=== PATIENT | female | born 1970 | race Two or more races ===

== ENCOUNTER 2017-01-05 10:36 | Observation (INO) | payer MEDICAID, OTHER ==
[~2017-01-05] VITALS: Ht 167.6 cm; Wt 86.2 kg
[~2017-01-05 10:36] MED LIST: SERT-275
[2017-01-05 11:40] LABS: Basophils # (auto) 0 uL; Basophils % (auto) 0.7 % (0.0-2.0); Eosinophils # (auto) 0.1 uL; Eosinophils % (auto) 1.7 % (0.0-7.0); Hematocrit 30.4 % (36.0-46.0); Lymphocytes # (auto) 1.8 uL; Lymphocytes % (auto) 25.8 % (10.0-50.0); Mean Corpuscular Hemoglobin 28.5 pg (28.0-32.0); Mean Corpuscular Hgb Conc. 32.9 g/dL (32.0-36.0); Mean Corpuscular Volume 86.6 fL (80.0-100.0); Mean Platelet Volume 6.9 fL (7.4-10.4); Monocytes # (auto) 0.3 uL; Monocytes % (auto) 4.3 % (0.0-12.0); Neutrophils # (auto) 4.6 uL; Neutrophils % (auto) 67.5 % (37.0-80.0); Platelet Count (auto) 476 10^3/uL (140-450); White Blood Cell 6.8 10^3/uL (4.4-10.8)
[2017-01-05 11:59] LABS: Albumin 3.5 g/dL (3.4-5.0); BUN/Creatinine Ratio 18.9; Bilirubin, Total 0.8 mg/dL (0.2-1.0); Calcium 8.6 mg/dL (8.5-10.1); Potassium 3.9 mmol/L (3.5-5.1); Total Protein 7.4 g/dL (6.4-8.2)
[2017-01-05 12:27] LABS: Urine Bilirubin Negative (Negative); Urine Blood TRACE /uL (Negative); Urine Color Yellow (Yellow); Urine Glucose Normal (Normal); Urine Ketone Negative (Negative); Urine Mucus FEW (None Seen); Urine Nitrite Negative (Negative); Urine RBC 1 /hpf (0 - 4); Urine Squamous Epithelial Cell FEW /hpf (<5); Urine Urobilinogen Normal (Negative); Urine pH 5.5 (5.0-8.0)
[2017-01-05] MEDS ORDERED: SODIUM CHLORIDE 0.9% 1,000 ML IVB ONE (16:03)
[2017-01-05] MEDS ORDERED: KETOROLAC TROMETH 30 MG/ML 1ML VIAL IV ONE (16:15)
[2017-01-05 19:15] VITALS: BP 107/82
== END 2017-01-05 20:04 | disposition home or self-care (01) | DRG 244 ==
LOC: ER 11:20 → OVERFLOW 16:07 → ER 20:04
PROVIDERS: ADMIT Family Medicine; ATTEND Family Medicine
DX: K57.30 Diverticulosis of large intestine without perforation or abscess without bleeding (principal); D50.9 Iron deficiency anemia, unspecified
CPT/HCPCS: 36415; 71010; 74176; 80053; 81001; 81025; 82150; 83690; 83735; 85025; 96361; 96374; 99285; G0378; J1885; J7030

== ENCOUNTER 2018-09-24 19:38 | Inpatient (IN) | payer BC, MEDICAID ==
[~2018-09-24] VITALS: Ht 167.6 cm; Wt 91.1 kg
[2018-09-24 20:25] LABS: Basophils # (auto) 0.1 uL; Basophils % (auto) 0.7 % (0.0-2.0); Eosinophils # (auto) 0.1 uL; Eosinophils % (auto) 1.1 % (0.0-7.0); Hematocrit 33.7 % (36.0-46.0); Hemoglobin 10.8 g/dL (12.2-16.2); Lymphocytes # (auto) 1.4 uL; Lymphocytes % (auto) 18.1 % (10.0-50.0); Mean Corpuscular Hemoglobin 29.3 pg (28.0-32.0); Mean Corpuscular Hgb Conc. 31.9 g/dL (32.0-36.0); Mean Corpuscular Volume 91.8 fL (80.0-100.0); Monocytes # (auto) 0.7 uL; Monocytes % (auto) 8.8 % (0.0-12.0); Neutrophils # (auto) 5.6 uL; Neutrophils % (auto) 71.3 % (37.0-80.0); Nucleated Red Blood Cells % 0.1 %; Platelet Count (auto) 376 10^3/uL (140-450); Red Blood Cells 3.68 10^6/uL (4.0-5.20); Red Cell Distribution Width 15.7 % (11.8-14.3); White Blood Cell 7.9 10^3/uL (4.4-10.8)
[2018-09-24 20:34] LABS: INR 1.09 (0.9-1.15); Partial Thromboplastin Time 30.3 sec (23.78-33.04); Prothrombin Time 11.6 sec (9.27-12.13)
[2018-09-24 20:37] LABS: Albumin 2.9 g/dL (3.4-5.0); Anion Gap 9 (5-15); Blood Urea Nitrogen 10 mg/dL (7-18); Calcium 8.7 mg/dL (8.5-10.1); Carbon Dioxide 24 mmol/L (21-32); Chloride 101 mmol/L (98-107); Glucose 103 mg/dL (74-106); Magnesium 2.6 mg/dL (1.6-2.6); Potassium 4.2 mmol/L (3.5-5.1); Sodium 134 mmol/L (136-145)
[2018-09-24 20:45] LABS: Alanine Aminotransferase 48 U/L (13-56); Alkaline Phosphatase 797 U/L (45-117); Aspartate Aminotransferase 167 U/L (15-37); BUN/Creatinine Ratio 14.9; Bilirubin, Total 1.7 mg/dL (0.2-1.0); GFR African American > 60 mL/min; GFR Non-African American > 60 mL/min; Total Protein 8.1 g/dL (6.4-8.2)
[2018-09-24] MEDS ORDERED: SODIUM CHLORIDE 0.9% 1,000 ML IV ONE (21:15)
[2018-09-24] MEDS ORDERED: PANTOPRAZOLE 40 MG/10 ML VIAL IV ONE (21:15)
[2018-09-24] MEDS ORDERED: PROMETHAZINE HCL 25 MG/ML 1ML IV ONE (21:15)
[2018-09-24] MEDS ORDERED: TEMAZEPAM 15 MG CAP PO PRN (21:45)
[2018-09-24] MEDS ORDERED: ONDANSETRON HCL 4 MG/2 ML VIAL IV PRN (21:45)
[2018-09-24] MEDS: SODIUM CHLORIDE 0.9% 1,000 ML IV SCH (21:45)
[2018-09-24] MEDS ORDERED: NITROGLYCERIN 0.4 MG SL TAB SL PRN (21:45)
[2018-09-24] MEDS ORDERED: MORPHINE SULFATE 10 MG/ML INJ 1ML SDV IV PRN ×2 (21:45)
[2018-09-24] MEDS ORDERED: ACETAMINOPHEN 325 MG TAB PO PRN (21:45)
[2018-09-24] MEDS ORDERED: PROMETHAZINE HCL 25 MG/ML 1ML IV PRN (22:00)
[2018-09-24] MEDS: FAMOTIDINE 20 MG TAB PO SCH (23:15)
[2018-09-25] VITALS (7 sets, daily range): BP systolic 100–113; BP diastolic 18–69
--- NOTE | 2018-09-25 00:02 | NUR ---
Telemetry admit from ER JF VANN admitted to Telemetry. Patient oriented to BARI CALLOWAY, primary RN, room 290B and unit policies regarding patient care and visiting hours. Patient now on continuous telemetry monitoring, tele box #5. Weighed by bed scale and encouraged to call if they need something. Pt currently laying in bed with rails up x2, bed is locked in the lowest position and call light is within reach. All questions and concerns addressed, patient verbalized understanding.
[2018-09-25] MEDS: HYDROcodone-ACET 5/325MG TAB PO PRN ×2 (00:49→11:27)
[2018-09-25] MEDS ORDERED: HYDR-4683 PO (01:17)
[2018-09-25] MEDS: SODIUM CHLORIDE 0.9% 1,000 ML IV SCH ×4 (05:00→23:28)
[2018-09-25 06:13] LABS: Basophils # (auto) 0.1 uL; Basophils % (auto) 0.7 % (0.0-2.0); Eosinophils # (auto) 0.2 uL; Eosinophils % (auto) 2.1 % (0.0-7.0); Hemoglobin 10.3 g/dL (12.2-16.2); Lymphocytes # (auto) 2.1 uL; Lymphocytes % (auto) 26.6 % (10.0-50.0); Mean Corpuscular Hemoglobin 30.2 pg (28.0-32.0); Mean Corpuscular Hgb Conc. 32.1 g/dL (32.0-36.0); Mean Corpuscular Volume 94.3 fL (80.0-100.0); Monocytes # (auto) 0.7 uL; Monocytes % (auto) 8.6 % (0.0-12.0); Neutrophils # (auto) 4.9 uL; Nucleated Red Blood Cells % 0.1 %; Platelet Count (auto) 375 10^3/uL (140-450); Red Cell Distribution Width 16.1 % (11.8-14.3); White Blood Cell 7.9 10^3/uL (4.4-10.8)
[2018-09-25 06:39] LABS: Calcium 8.3 mg/dL (8.5-10.1); Chloride 105 mmol/L (98-107); Potassium 3.3 mmol/L (3.5-5.1); Sodium 138 mmol/L (136-145)
[2018-09-25 06:44] LABS: Alanine Aminotransferase 42 U/L (13-56); Albumin 2.6 g/dL (3.4-5.0); Alkaline Phosphatase 679 U/L (45-117); Anion Gap 7 (5-15); Aspartate Aminotransferase 154 U/L (15-37); BUN/Creatinine Ratio 14.3; Bilirubin, Total 1.8 mg/dL (0.2-1.0); Blood Urea Nitrogen 9 mg/dL (7-18); Carbon Dioxide 26 mmol/L (21-32); GFR African American > 60 mL/min; GFR Non-African American > 60 mL/min; Glucose 91 mg/dL (74-106); Total Protein 7.6 g/dL (6.4-8.2)
--- NOTE | 2018-09-25 07:30 | NUR ---
Morning note patient resting in bed with eyes closed. Respirations even and unlabored on RA. Fall precautions in place with call light within reach. Will continue to monitor q1hr & PRN.
[2018-09-25] MEDS: FAMOTIDINE 20 MG TAB PO SCH ×2 (09:06→21:32)
--- NOTE | 2018-09-25 14:01 | NUR ---
Family at bedside
--- NOTE | 2018-09-25 16:08 | NUR ---
Patient transferred to room 292B with all personal belongings. Family at bedside.
--- NOTE | 2018-09-25 17:34 | NUR ---
RE: low potassium Contacted Dr. Chavez to notify MD of patient's abnormal potassium lab value. Will wait for orders.
--- NOTE | 2018-09-25 18:58 | NUR ---
Order received for potassium telephone order receive for low potassium level.
--- NOTE | 2018-09-25 18:58 | NUR ---
End of shift patient resting in bed with even and unlabored respirations on RA. Family at bedside. Fall precautions in place with call light within reach. Will endorse care to RN.
[2018-09-25] MEDS ORDERED: POTASSIUM CHL 20 Meq TABLET PO ONE (19:00)
--- NOTE | 2018-09-25 20:00 | NUR ---
Opening Shift Note Assumed care of patient, awake and alert, oriented x4. No S/S of distress/SOB or pain. Instructed on POC, verbalized understanding and to call for assist PRN, call light within reach. Side rails up x2, bed in lowest locked position. Family at bedside. Will continue to monitor for changes Q1hr and PRN.
--- NOTE | 2018-09-25 22:25 | NUR ---
DR LEROY AT BEDSIDE DISCUSSING POC. PT VERBALIZED UNDERSTANDING.
[2018-09-26 04:07] LABS: Urine Amorphous Crystal FEW /hpf (None Seen); Urine Bacteria MANY /hpf (None Seen); Urine Blood 2+ /uL (Negative); Urine Mucus FEW (None Seen); Urine Specific Gravity 1.013 (1.001-1.035); Urine WBC 15 /hpf (0 - 5)
[2018-09-26 05:00] VITALS: BP 112/62
[2018-09-26] MEDS: SODIUM CHLORIDE 0.9% 1,000 ML IV SCH ×3 (05:42→21:56)
[2018-09-26 05:48] LABS: Calcium 7.7 mg/dL (8.5-10.1); Chloride 107 mmol/L (98-107); Potassium 4.1 mmol/L (3.5-5.1); Sodium 137 mmol/L (136-145)
[2018-09-26 05:53] LABS: Alanine Aminotransferase 35 U/L (13-56); Albumin 2.2 g/dL (3.4-5.0); Alkaline Phosphatase 609 U/L (45-117); Anion Gap 5 (5-15); Aspartate Aminotransferase 145 U/L (15-37); BUN/Creatinine Ratio 9.3; Bilirubin, Total 1.8 mg/dL (0.2-1.0); Blood Urea Nitrogen 5 mg/dL (7-18); Carbon Dioxide 25 mmol/L (21-32); Glucose 94 mg/dL (74-106); Total Protein 6.4 g/dL (6.4-8.2)
[2018-09-26 06:12] LABS: GFR African American > 60 mL/min; GFR Non-African American > 60 mL/min
--- NOTE | 2018-09-26 07:30 | NUR ---
Morning note patient resting in bed with even and unlabored respirations on RA. Instructed patient on POC, fall precautions and to call for assistance as needed. Patient verbalized understanding. Fall precautions in place with call light within reach. Will continue to monitor q1hr & PRN.
--- NOTE | 2018-09-26 07:30 | NUR ---
RE: Urine analysis Contacted Dr. Chavez to notify MD of the UA results. Waiting for orders.
[2018-09-26] MEDS: FAMOTIDINE 20 MG TAB PO SCH ×2 (08:22→21:56)
[2018-09-26] MEDS: HYDROcodone-ACET 5/325MG TAB PO PRN (08:22)
--- NOTE | 2018-09-26 08:27 | NUR ---
RE: breakfast meal Patient currently consuming breakfast meal at this time. Instructed patient to notify staff if N/V and/or diarrhea occur after consuming the meal. Patient verbalized understanding. call light within reach.
--- NOTE | 2018-09-26 09:21 | NUR ---
PCP No PCP, Has Insu. Spoke with Meaghan Jeffers regarding arranging new PCP for patient, per Meaghan she is to come speak with patient.
--- NOTE | 2018-09-26 09:34 | NUR ---
Orders received Antibiotic order received by telephone from Dr. Chavez. Order read back to confirm. RN to place order per MD's request.
[2018-09-26] MEDS ORDERED: cefTRIAXone 1GM/50ML D5W 50 ML IV ONE (09:45)
[2018-09-26 10:12] VITALS: BP 106/64
--- NOTE | 2018-09-26 11:41 | NUR ---
Family at bedside - patient requesting shower will request order from MD during patient rounds.
--- NOTE | 2018-09-26 11:42 | NUR ---
Patient reports episode of vomiting Patient states "I don't think it is related to any food. I just felt hot and like I needed to throw up." Will update MD during patient rounds.
[2018-09-26 13:00] VITALS: BP 103/62
--- NOTE | 2018-09-26 14:13 | NUR ---
RE: showering received telephone order that it is okay for patient to shower. Patient has been updated and instructed to notify staff once she is ready to take a shower. Patient verbalized understanding. Family at bedside.
[2018-09-26 17:22] VITALS: BP 102/52
--- NOTE | 2018-09-26 18:48 | NUR ---
End of shift patient resting in bed with even and unlabored respirations on RA. Family at bedside. Patient has c/o abdominal distention and discomfort. Patient denies N/V at this time. MD has not rounded on patient at this time. Will endorse information to ESTELA De La Fuente. Fall precautions in place with call light within reach. Will endorse further care to ESTELA De La Fuente.
--- NOTE | 2018-09-26 19:05 | NUR ---
Opening Shift Note Assumed care of patient, awake and alert. Family is at bedside. No S/S of distress/SOB or pain. Instructed on POC and to call for assist PRN, will continue to monitor for changes Q1hr and PRN.
--- NOTE | 2018-09-26 19:38 | NUR ---
ROUNDS SPOKE TO PT REGARDING POC. PT STATED THAT SHE FELT WARM AND VOMITTED AFTER RECEIVING ROCEPHIN, ABD ALSO FEELS DISTENDED AND TASTE BUDS ARE DIFFERENT. DOES NOT FEEL COMFORTABLE GOING HOME YET. LEFT MSG FOR DR LEROY. WILL ENDORSE TO CRISTA PALMER.
[2018-09-26 22:00] VITALS: BP 102/72
[2018-09-27] MEDS: SODIUM CHLORIDE 0.9% 1,000 ML IV SCH ×2 (03:40→09:45)
[2018-09-27 05:01] VITALS: BP 108/70
--- NOTE | 2018-09-27 07:00 | NUR ---
Closing shift note Patient resting comfortably in bed. No S/S of distress, pain, or SOB. Will endorse care to day shift RN.
[2018-09-27 08:00] VITALS: BP 104/68
--- NOTE | 2018-09-27 08:12 | NUR ---
Opening Shift Note Assumed care of patient, awake and alert, oriented x 4 and verbally responsive. No S/S of distress/SOB or pain. Instructed on POC and to call for assist PRN, will continue to monitor for changes Q1hr and PRN.
[2018-09-27 08:48] VITALS: BP 104/68
[2018-09-27] MEDS ORDERED: cefTRIAXone 1GM/50ML D5W 50 ML IV SCH (09:00)
[2018-09-27] MEDS: FAMOTIDINE 20 MG TAB PO SCH (09:18)
[2018-09-27 09:49] VITALS: BP 104/93
--- NOTE | 2018-09-27 11:23 | NUR ---
Discharge instructions given as ordered. Encourage to follow up with PMD (Patient has no PCP. Instructed patient to go to [facility] Urgent care 8 AM-8 PM. # [phone] Ext [phone] Address : [address] [place] [address] Rd, [place], [address]. Provided a urgent care coupon to the patient.)as instructed. All questions and concerns addressed. Patient verbalized understanding. Medication reconciliation form completed and copy given to patient. IV removed with catheter intact, pressure dressing applied. Telemetry unit returned to [facility]. Patient taken to vehicle via wheelchair with all personal belongings, accompanied by staff and family member. No distress noted at time of departure.
== END 2018-09-27 12:56 | disposition home or self-care (01) | DRG 392 ==
LOC: ER 19:38 → TELE 21:45 → TELE-WESTW 23:20
PROVIDERS: ADMIT Internal Medicine; ATTEND Internal Medicine
DX: R11.2 Nausea with vomiting, unspecified (principal); C78.7 Secondary malignant neoplasm of liver and intrahepatic bile duct; J98.11 Atelectasis; K42.9 Umbilical hernia without obstruction or gangrene; D64.9 Anemia, unspecified; E86.0 Dehydration; Z63.4 Disappearance and death of family member; Z80.0 Family history of malignant neoplasm of digestive organs; Z90.49 Acquired absence of other specified parts of digestive tract; Z88.0 Allergy status to penicillin; Z85.038 Personal history of other malignant neoplasm of large intestine
CPT/HCPCS: 36415; 74176; 80053; 81001; 83735; 84484; 84702; 85025; 85610; 85730; 87086; 93005; 96361; 96374; 96375; C9113; G0378; J0696

== ENCOUNTER 2018-10-28 14:29 | Inpatient (IN) | payer BC ==
[~2018-10-28] VITALS: Ht 167.6 cm; Wt 101.6 kg
[~2018-10-28 14:29] MED LIST changes: +HYDR-4683 PO; -SERT-275
[2018-10-28 17:03] LABS: Basophils # (auto) 0 uL; Basophils % (auto) 0.3 % (0.0-2.0); Eosinophils # (auto) 0 uL; Eosinophils % (auto) 0.4 % (0.0-7.0); Hematocrit 28.2 % (36.0-46.0); Hemoglobin 9.1 g/dL (12.2-16.2); Lymphocytes # (auto) 0.9 uL; Lymphocytes % (auto) 9.9 % (10.0-50.0); Mean Corpuscular Hgb Conc. 32.3 g/dL (32.0-36.0); Mean Corpuscular Volume 89.6 fL (80.0-100.0); Monocytes # (auto) 0.8 uL; Monocytes % (auto) 8.5 % (0.0-12.0); Neutrophils # (auto) 7.5 uL; Neutrophils % (auto) 80.9 % (37.0-80.0); Platelet Count (auto) 318 10^3/uL (140-450); Red Blood Cells 3.15 10^6/uL (4.0-5.20); Red Cell Distribution Width 18.1 % (11.8-14.3); White Blood Cell 9.3 10^3/uL (4.4-10.8)
[2018-10-28 17:10] LABS: Urine Bacteria FEW /hpf (None Seen); Urine Blood Negative /uL (Negative); Urine Mucus FEW (None Seen); Urine Specific Gravity 1.019 (1.001-1.035); Urine WBC 30 /hpf (0 - 5)
[2018-10-28 17:18] LABS: INR 1.23 (0.9-1.15); Partial Thromboplastin Time 29.6 sec (23.78-33.04)
[2018-10-28 17:37] LABS: Albumin 1.9 g/dL (3.4-5.0); Anion Gap 10 (5-15); Blood Urea Nitrogen 4 mg/dL (7-18); Carbon Dioxide 25 mmol/L (21-32); Chloride 95 mmol/L (98-107); Potassium 4.2 mmol/L (3.5-5.1); Sodium 130 mmol/L (136-145)
[2018-10-28 17:39] LABS: Alanine Aminotransferase 29 U/L (13-56); Aspartate Aminotransferase 259 U/L (15-37); GFR African American 169 mL/min; GFR Non-African American 140 mL/min; Glucose 93 mg/dL (74-106)
[2018-10-28 17:42] LABS: Alkaline Phosphatase 759 U/L (45-117); Bilirubin, Total 3.4 mg/dL (0.2-1.0); Total Protein 6.6 g/dL (6.4-8.2)
[2018-10-28] MEDS ORDERED: MORPHINE SULFATE 4 MG/ML SYR/VIAL IV ONE (17:45)
[2018-10-28] MEDS ORDERED: ACETAMINOPHEN 325 MG TAB PO ONE (20:30)
[2018-10-28] MEDS ORDERED: ONDANSETRON HCL 4 MG/2 ML VIAL IV PRN (21:45)
[2018-10-28] MEDS ORDERED: SODIUM CHLORIDE 0.9% 1,000 ML IV ONE (21:45)
[2018-10-28] MEDS ORDERED: IBUPROFEN 400 MG TAB PO PRN (21:45)
[2018-10-28] MEDS ORDERED: SODIUM CHLORIDE 0.9% 2,500 ML IV ONE (21:45)
[2018-10-28] MEDS ORDERED: PROMETHAZINE HCL 25 MG/ML 1ML IV ONE (21:45)
[2018-10-28] MEDS ORDERED: TEMAZEPAM 15 MG CAP PO PRN (21:45)
[2018-10-28] MEDS: DOCUSATE SOD 100 MG CAP PO SCH (23:22)
[2018-10-28] MEDS: FAMOTIDINE 20 MG TAB PO SCH (23:22)
[2018-10-28 23:40] VITALS: BP 114/73
--- NOTE | 2018-10-28 23:40 | NUR ---
MS admit from ER EDWARJF admitted to tele/MS after SBAR received. Patient oriented to Cecelia Stevens, primary RN, unit, room, bed, and unit policies regarding patient care and visiting hours. Patient weighed by bed scale and encouraged to call if they need something. All questions and concerns addressed, patient verbalized understanding. Note: Patient is awake and alert x4, ambulated independently to bathroom. Patient updated on plan of care, all questions and concerns addressed. Patient instructed on need for urine specimen for culture, verbalized understanding. Specimen cup provided to patient.
[2018-10-28 23:53] VITALS: BP 114/73
[2018-10-29] MEDS: MORPHINE SULFATE 4 MG/ML SYR/VIAL IV PRN ×6 (00:05→23:35)
[2018-10-29] MEDS ORDERED: HYDR-4072 PO (04:52)
[2018-10-29] MEDS ORDERED: ONDA-143 PO (04:52)
[2018-10-29 05:00] VITALS: BP 104/74
--- NOTE | 2018-10-29 06:20 | NUR ---
URINE SPECIMEN SENT TO LAB FOR URINE CULTURE. DARK MIKI URINE NOTED.
--- NOTE | 2018-10-29 07:25 | NUR ---
Opening Shift Note Assumed care of patient, awake and alert. No S/S of distress/SOB pain managed with morphine; abdomen distended and tender to palpation. at bedside .Instructed on POC and to call for assist PRN, will continue to monitor for changes Q1hr and PRN.
[2018-10-29] MEDS ORDERED: IOHEXOL 300 MG/ML 100ML BOTTLE IJ ONE (08:09)
[2018-10-29 08:30] LABS: Basophils # (auto) 0 uL; Basophils % (auto) 0.5 % (0.0-2.0); Eosinophils # (auto) 0 uL; Eosinophils % (auto) 0.1 % (0.0-7.0); Hematocrit 26.3 % (36.0-46.0); Hemoglobin 8.7 g/dL (12.2-16.2); Lymphocytes # (auto) 1.1 uL; Lymphocytes % (auto) 11.5 % (10.0-50.0); Mean Corpuscular Hemoglobin 29.5 pg (28.0-32.0); Mean Corpuscular Hgb Conc. 33.1 g/dL (32.0-36.0); Mean Corpuscular Volume 89.3 fL (80.0-100.0); Monocytes # (auto) 0.7 uL; Monocytes % (auto) 7.1 % (0.0-12.0); Neutrophils # (auto) 7.4 uL; Neutrophils % (auto) 80.8 % (37.0-80.0); Platelet Count (auto) 283 10^3/uL (140-450); Red Blood Cells 2.95 10^6/uL (4.0-5.20); Red Cell Distribution Width 18.1 % (11.8-14.3); White Blood Cell 9.2 10^3/uL (4.4-10.8)
[2018-10-29 08:32] LABS: BUN/Creatinine Ratio 11.8; Calcium 8.3 mg/dL (8.5-10.1); Potassium 3.9 mmol/L (3.5-5.1)
[2018-10-29 09:00] VITALS: BP 119/74
[2018-10-29] MEDS: FAMOTIDINE 20 MG TAB PO SCH ×2 (10:18→21:52)
[2018-10-29] MEDS: DOCUSATE SOD 100 MG CAP PO SCH ×2 (10:18→21:52)
--- NOTE | 2018-10-29 12:36 | NUR ---
NUTRITION CONSULT/ASSESSMENT NOTES Please refer to link notes of nutrition screen form filed under the intervention section of the plan of care for further details. Est. Needs: 1750 kcal to 2100 kcal (20-25 kcal/kgBW), 101 gms to 126 gms pro (1.2-1.5 gms/kgBW d/t CA, severe hypoalbuminemia). Will continue to monitor pertinent labs and reassess nutrient need prn Thank you for this consult. Addendum: 10/29/18 at [address] Amended: Links added.
[2018-10-29 13:00] VITALS: BP 112/71
[2018-10-29] MEDS: SODIUM CHLORIDE 0.9% 1,000 ML IV SCH ×2 (14:03→20:36)
[2018-10-29 18:05] VITALS: BP 116/65
[2018-10-29] MEDS: Ensure Enlive Strawberry 8oz Bottle PO SCH ×3 (19:59→21:52)
[2018-10-29 22:00] VITALS: BP 114/69
[2018-10-30 05:00] VITALS: BP 111/65
[2018-10-30] MEDS: SODIUM CHLORIDE 0.9% 1,000 ML IV SCH ×3 (05:46→21:52)
[2018-10-30] MEDS: Ensure Enlive Strawberry 8oz Bottle PO SCH ×4 (05:47→21:53)
[2018-10-30] MEDS: MORPHINE SULFATE 4 MG/ML SYR/VIAL IV PRN ×2 (05:47→09:42)
[2018-10-30 06:37] LABS: Basophils # (auto) 0 uL; Basophils % (auto) 0.2 % (0.0-2.0); Eosinophils # (auto) 0 uL; Eosinophils % (auto) 0.3 % (0.0-7.0); Hematocrit 26.2 % (36.0-46.0); Hemoglobin 8.6 g/dL (12.2-16.2); Mean Corpuscular Hemoglobin 29.4 pg (28.0-32.0); Mean Corpuscular Hgb Conc. 32.7 g/dL (32.0-36.0); Monocytes # (auto) 0.8 uL; Monocytes % (auto) 8.4 % (0.0-12.0); Neutrophils # (auto) 7.5 uL; Neutrophils % (auto) 80.1 % (37.0-80.0); Platelet Count (auto) 296 10^3/uL (140-450); Red Blood Cells 2.91 10^6/uL (4.0-5.20); Red Cell Distribution Width 18.7 % (11.8-14.3); White Blood Cell 9.4 10^3/uL (4.4-10.8)
[2018-10-30 06:57] LABS: % Iron Saturation 17.9 % (15-50)
[2018-10-30 06:58] LABS: Calcium 8.1 mg/dL (8.5-10.1); Potassium 3.9 mmol/L (3.5-5.1)
[2018-10-30 07:09] LABS: BUN/Creatinine Ratio 7.9
[2018-10-30 08:44] LABS: Ferritin > 1650.0 ng/mL (10-322); Folate (Folic Acid) 7.82 ng/mL (5.38-24)
[2018-10-30 09:00] VITALS: BP 115/69
[2018-10-30] MEDS: DOCUSATE SOD 100 MG CAP PO SCH ×2 (09:37→21:50)
[2018-10-30] MEDS: FAMOTIDINE 20 MG TAB PO SCH ×2 (09:37→21:50)
[2018-10-30] MEDS ORDERED: LEVOFLOXACIN 500 MG TAB PO ONE (13:00)
[2018-10-30] MEDS: HYDROmorphone HCL 2 MG/ML VL IV PRN ×3 (14:37→23:15)
[2018-10-30 17:27] VITALS: BP 102/59
--- NOTE | 2018-10-30 19:20 | NUR ---
Opening Shift Note Received report from jennifer Edwards RN. Assumed care of patient, awake and alert. No S/S of distress/SOB, but c/o discomfort to abdomen. Family at bedside. Instructed on POC and to call for assist PRN, will continue to monitor for changes Q1hr and PRN.
--- NOTE | 2018-10-30 21:30 | NUR ---
DR LEROY IN PATIENT'S ROOM.
[2018-10-30 22:00] VITALS: BP 112/66
[2018-10-31] MEDS: SODIUM CHLORIDE 0.9% 1,000 ML IV SCH ×3 (03:50→22:37)
[2018-10-31 05:00] VITALS: BP 105/67
[2018-10-31] MEDS: HYDROmorphone HCL 2 MG/ML VL IV PRN ×2 (05:13→09:28)
[2018-10-31] MEDS: Ensure Enlive Strawberry 8oz Bottle PO SCH ×4 (05:16→21:33)
--- NOTE | 2018-10-31 07:00 | NUR ---
PATIENT IS ALERT AND ORIENTED, AMBULATORY, RESTING IN BED, NO DISTRESS NOTED AND PATIENT JUST RECEIVED DILAUDID FOR PAIN TO ABDOMEN.
[2018-10-31 09:00] VITALS: BP 104/68
[2018-10-31] MEDS: LEVOFLOXACIN 500 MG TAB PO SCH (09:35)
[2018-10-31] MEDS: FAMOTIDINE 20 MG TAB PO SCH ×2 (09:35→21:31)
[2018-10-31] MEDS: DOCUSATE SOD 100 MG CAP PO SCH ×2 (09:35→21:31)
--- NOTE | 2018-10-31 11:47 | NUR ---
Nutrition Follow-up Notes Wt.: 89.9 kg Pt was sleeping with no family by beside. per records pt with abdominal pain, no distress noted per nursing. pt is now advanced to full liq diet with ensure Enlive 1 carton QID with adequate Po of 75% x6 per RN doc Est. Needs: 1750 kcal to 2100 kcal (20-25 kcal/kgBW), 101 gms to 126 gms pro (1.2-1.5 gms/kgBW d/t CA, severe hypoalbuminemia). Will continue to monitor pertinent labs and reassess nutrient need prn Labs: CA 8.1 L, ALB 1.9 L. Skin: Omar scale 18, mod risk, skin intact per detail drafter. GI: Pt has no BM reported per detail drafter. PES: Altered nutrition related lab values r/t current/chronic medical condition aeb hyponatremia, low renal labs, elev. LFTs, hyperbilirubinemia, hypocalcemia and severe hypoalbuminemia Increased nutrient needs r/t chronic current medical condition aeb Abdominal pain- Stage IV Colon CA with metastasis,Right pleural effusion,severe hypoalbuminemia, on Clear Liquid diet Will continue to monitor PO intake, skin status, pertinent labs and weight trend. F/u in 3-5 days. Rec.: 1.) Advance gradually oral diet (Soft Low Chol, Low Fat diet) when medically appropriate. 2) Continue close supervision with meals 3.) Refer to RD for further nutrition educ. and weight monitoring upon discharge. 4.) Continue current plan of care.
[2018-10-31 13:00] VITALS: BP 100/62
[2018-10-31] MEDS: HYDROmorphone HCL 2 MG TAB PO PRN ×2 (15:16→19:59)
[2018-10-31 17:04] VITALS: BP 104/64
--- NOTE | 2018-10-31 19:10 | NUR ---
Opening Shift Note Assumed care of patient, awake and alert. No S/S of distress/SOB or pain. Instructed on POC and to call for assist PRN, will continue to monitor for changes Q1hr and PRN. Bed changed in lowest position, and call light within reach.
[2018-10-31] MEDS: MORPHINE SULF 30 mg ER tab PO SCH (21:31)
[2018-10-31 21:47] VITALS: BP 116/70
--- NOTE | 2018-11-01 00:01 | NUR ---
IV removal IV to right forearm infiltrated. IV DC'd with sterile technique, catheter fully intact. Pressure dressing applied to site. Patient tolerated procedure well. IV insertion IV access obtained, via clean sterile technique by inserting 22 gauge catheter at right hand after first attempt. IV secured properly. No trauma to site. Patient tolerated procedure well.
[2018-11-01 05:00] VITALS: BP_SYST 110; BP_SYST 133; BP_DIAS 69; BP_DIAS 72
[2018-11-01] MEDS: HYDROmorphone HCL 2 MG TAB PO PRN ×5 (05:40→23:10)
[2018-11-01] MEDS: Ensure Enlive Strawberry 8oz Bottle PO SCH ×4 (05:41→22:00)
[2018-11-01] MEDS: SODIUM CHLORIDE 0.9% 1,000 ML IV SCH ×3 (06:43→23:08)
[2018-11-01 08:45] VITALS: BP 106/67
--- NOTE | 2018-11-01 09:00 | NUR ---
Opening Shift Note Assumed care of patient, awake and alert. Pt states that she abd pain is a tolerable level at this time. Pt requesting that pain medication, including prn Dilaudid be given scheduled so that degree of pain continues to be maintained at tolerable level. Pt instructed on POC and to call for assist PRN, will continue to monitor for changes Q1hr and PRN.
[2018-11-01] MEDS: LEVOFLOXACIN 500 MG TAB PO SCH (09:52)
[2018-11-01] MEDS: DOCUSATE SOD 100 MG CAP PO SCH ×2 (09:52→23:08)
[2018-11-01] MEDS: FAMOTIDINE 20 MG TAB PO SCH ×2 (09:52→23:09)
[2018-11-01] MEDS: MORPHINE SULF 30 mg ER tab PO SCH ×2 (09:52→23:09)
[2018-11-01 13:00] VITALS: BP 96/61
[2018-11-01 17:00] VITALS: BP 108/67
--- NOTE | 2018-11-01 19:05 | NUR ---
OPEN SHIFT NOTE PATIENT IS ALERT AND ORIENTED X4, ON ROOM AIR. 20 GAUGE IN THE RIGHT FOREARM IS INTACT AND PATENT. POC DISCUSSED, QUESTIONS ANSWERED. BED IS LOCKED IN LOWEST POSITION WITH SIDE RAILS UP X2, CALL LIGHT IS WITHIN REACH. FAMILY AT BEDSIDE AT THIS TIME. WILL CONTINUE TO ROUND Q1HR AND PRN.
[2018-11-01 20:14] VITALS: BP 110/66
[2018-11-01 21:42] VITALS: BP 109/64
[2018-11-02] MEDS: HYDROmorphone HCL 2 MG TAB PO PRN ×5 (03:28→20:09)
[2018-11-02 04:54] VITALS: BP 121/73
[2018-11-02] MEDS: Ensure Enlive Strawberry 8oz Bottle PO SCH ×4 (06:00→22:00)
[2018-11-02] MEDS: SODIUM CHLORIDE 0.9% 1,000 ML IV SCH ×3 (07:08→19:45)
--- NOTE | 2018-11-02 09:00 | NUR ---
Opening Shift Note Assumed care of patient, awake and alert. Marked, bilateral, lower leg edema, with pitting in ankles. Both legs are warm to touch with positive pedal pulses. Pt c/o "tightness" in both legs. Pt denies pain in legs. No c/o numbness or tingling in legs. Insructed on POC and to call for assist PRN, will continue to monitor for changes Q1hr and PRN. Pt denies chest pain. Resp even, unlabored.
[2018-11-02] MEDS: DOCUSATE SOD 100 MG CAP PO SCH ×2 (10:19→22:23)
[2018-11-02] MEDS: MORPHINE SULF 30 mg ER tab PO SCH ×2 (10:20→22:23)
[2018-11-02] MEDS: LEVOFLOXACIN 500 MG TAB PO SCH (10:20)
[2018-11-02] MEDS: FAMOTIDINE 20 MG TAB PO SCH ×2 (10:20→22:23)
--- NOTE | 2018-11-02 18:00 | NUR ---
Pt showing no change from initial assessment. No change in degree of edema to both legs. Pt continues to c/o "tightness" in legs, but no actual pain. Pt states that pain is adequately controlled with scheduled administration of Morphine and Dilaudid. No further c/o nausea following the administration of Zofran.
--- NOTE | 2018-11-02 19:02 | NUR ---
OPEN SHIFT NOTE PATIENT IS ALERT AND ORIENTED X4, ON ROOM AIR, 22 GAUGE IN THE RIGHT FOREARM IS INTACT AND PATENT. FAMILY AT BEDSIDE. POC DISCUSSED AND QUESTIONS ANSWERED. BED IS LOCKED IN LOWEST POSITION WITH SIDE RAILS UP X2. CALL LIGHT IS WITHIN REACH AND PATIENT ENCOURAGED TO CALL. WILL CONTINUE TO ROUND Q1HR AND PRN.
[2018-11-02 20:00] VITALS: BP 117/67
[2018-11-02 21:48] VITALS: BP 117/67
[2018-11-03] MEDS: HYDROmorphone HCL 2 MG TAB PO PRN ×5 (00:16→19:48)
[2018-11-03] MEDS: SODIUM CHLORIDE 0.9% 1,000 ML IV SCH ×3 (03:43→19:48)
[2018-11-03 05:00] VITALS: BP_SYST 110; BP_SYST 128; BP_DIAS 65; BP_DIAS 69
[2018-11-03] MEDS: Ensure Enlive Strawberry 8oz Bottle PO SCH ×4 (06:00→22:54)
--- NOTE | 2018-11-03 07:25 | NUR ---
Open Shift Note Received report on patient, awake and sitting up in bed. Patient states pain 5/10. Discussed POC and pain management techniques with patient. Bed in lowest locked position, side rails up x2, and call light within reach. Will continue to monitor.
[2018-11-03 08:00] VITALS: BP 100/60
[2018-11-03] MEDS: LEVOFLOXACIN 500 MG TAB PO SCH (10:25)
[2018-11-03] MEDS: MORPHINE SULF 30 mg ER tab PO SCH ×2 (10:25→22:54)
[2018-11-03] MEDS: FAMOTIDINE 20 MG TAB PO SCH ×2 (10:26→22:54)
[2018-11-03] MEDS: DOCUSATE SOD 100 MG CAP PO SCH ×2 (10:26→22:53)
--- NOTE | 2018-11-03 10:30 | NUR ---
Patient Showering Patient showering, no signs of distress. Will continue to monitor.
[2018-11-03 12:00] VITALS: BP 102/62
[2018-11-03 17:00] VITALS: BP 114/75
--- NOTE | 2018-11-03 18:48 | NUR ---
Dr Chavez at Bedside Dr Chavez at patient bedside.
--- NOTE | 2018-11-03 18:51 | NUR ---
End of Shift Endorsed care to NOC nurse. Patient shows no signs of distress at this time. Bed in lowest locked position, side rails up x2, and call light within reach. Family at bedside.
[2018-11-03 22:00] VITALS: BP 108/71
[2018-11-04] MEDS: SODIUM CHLORIDE 0.9% 1,000 ML IV SCH (03:45)
[2018-11-04 05:03] VITALS: BP 104/66
[2018-11-04] MEDS: Ensure Enlive Strawberry 8oz Bottle PO SCH (06:38)
--- NOTE | 2018-11-04 06:39 | NUR ---
END OF SHIFT PATIENT RESTING IN BED. NO S/S OF RESPIRATORY DISTRESS OR PAIN NOTED. BED IN LOWEST LOCKED POSITION AND CALL BUSH W/IN REACH. ENDORSING CARE TO DAY RN.
--- NOTE | 2018-11-04 07:25 | NUR ---
Open Shift Note Received report on patient, awake and standing up next to chair. Patient states they are getting ready to take a shower. Discussed POC with patient, and DC planning. Patient shows no signs of distress at this time. Bed in lowest locked position, side rails up x2, and call light within reach. Will continue to monitor.
--- NOTE | 2018-11-04 07:45 | NUR ---
Patient in Shower Patient showering. Will continue to monitor.
[2018-11-04 09:00] VITALS: BP 109/73
[2018-11-04] MEDS: DOCUSATE SOD 100 MG CAP PO SCH (09:03)
[2018-11-04] MEDS: MORPHINE SULF 30 mg ER tab PO SCH (09:03)
[2018-11-04] MEDS: LEVOFLOXACIN 500 MG TAB PO SCH (09:03)
[2018-11-04] MEDS: FAMOTIDINE 20 MG TAB PO SCH (09:03)
[2018-11-04 10:53] VITALS: BP 109/73
[2018-11-04 11:51] VITALS: BP 106/70
--- NOTE | 2018-11-04 11:52 | NUR ---
Nutrition Follow-up Notes Wt.: 89.9 kg Pt was sleeping with no family by beside. per records pt with abdominal pain, no distress noted per nursing. pt is currently on regular ddiet with ensure enlive 1carton QID with adequate PO of 75% x 4 per RN doc Est. Needs: 1750 kcal to 2100 kcal (20-25 kcal/kgBW), 101 gms to 126 gms pro (1.2-1.5 gms/kgBW d/t CA, severe hypoalbuminemia). Will continue to monitor pertinent labs and reassess nutrient need prn Labs: No new labs today 10/30 : CA 8.1 L, ALB 1.9 L. Skin: Omar scale 19, low risk, skin intact per student affairs dean. GI: Pt has no BM reported per student affairs dean. PES: Altered nutrition related lab values r/t current/chronic medical condition aeb hyponatremia, low renal labs, elev. LFTs, hyperbilirubinemia, hypocalcemia and severe hypoalbuminemia Increased nutrient needs r/t chronic current medical condition aeb Abdominal pain- Stage IV Colon CA with metastasis,Right pleural effusion,severe hypoalbuminemia, on Clear Liquid diet Will continue to monitor PO intake, skin status, pertinent labs and weight trend. F/u in 3-5 days. Rec.: 1.) Continue close supervision with meals 2.) Refer to RD for further nutrition educ. and weight monitoring upon discharge. 3.) Continue current plan of care.
== END 2018-11-04 12:00 | disposition hospice, home (50) | DRG 375 ==
LOC: ER 14:29 → OVERFLOW 21:40 → WEST WING 23:14
PROVIDERS: ADMIT Nurse Practitioner Family; ATTEND Internal Medicine
DX: C19 Malignant neoplasm of rectosigmoid junction (principal); J90 Pleural effusion, not elsewhere classified; N39.0 Urinary tract infection, site not specified; E44.0 Moderate protein-calorie malnutrition; C78.7 Secondary malignant neoplasm of liver and intrahepatic bile duct; E87.1 Hypo-osmolality and hyponatremia; E86.0 Dehydration; D63.0 Anemia in neoplastic disease; K46.9 Unspecified abdominal hernia without obstruction or gangrene; Z80.7 Family history of other malignant neoplasms of lymphoid, hematopoietic and related tissues; Z82.49 Family history of ischemic heart disease and other diseases of the circulatory system; Z90.49 Acquired absence of other specified parts of digestive tract
CPT/HCPCS: 36415; 71045; 71260; 74176; 80048; 80053; 81001; 82378; 82607; 82728; 82746; 83540; 83550; 83615; 84702; 85025; 85045; 85610; 85730; 87086; 93005; 96361; 96374; 96375; G0378; J2405